=== PATIENT | male | born 1950 | race Caucasian/White ===

== ENCOUNTER → 2021-05-10 | Day surgery (SDC) | payer OTHER ==
--- NOTE | 2021-05-10 11:02 | RAD REPORT ---
EXAM DESCRIPTION: US - Biopsy Lymph Node - 05/10/2021 10:23 am CLINICAL HISTORY: R58.9 COMPARISON: No comparisons FINDINGS: Preoperative diagnosis: Right neck mass. Post operative diagnosis: Same. Conscious Sedation: None Fluoroscopy time: None Contrast used: None Estimated blood loss: Minimal Specimens:5 core samples were obtained with an 18 gauge core biopsy needle The right neck was prepped and draped in the usual sterile fashion. 1% lidocaine was infiltrated into the subcutaneous tissues for local anesthesia. Real time ultrasound scanning of the right neck demon strated the right neck mass. Under ultrasound guidance, using a 18-gauge, 6 cm long, 2 cm throw core biopsy gun, 5 specimens were obtained of this lesion and sent to pathology for evaluation. There were no complications. IMPRESSION: Technically successful ultrasound-guided core biopsy of a right neck mass.
== END ==
LOC: FNA 10:00
PROVIDERS: ATTEND Otolaryngology
DX: C76.0 Malignant neoplasm of head, face and neck (principal)
CPT/HCPCS: 38505; 76942; 88305

== ENCOUNTER 2021-05-20 10:11 | Day surgery (SDC) | payer OTHER ==
[2021-05-20] MEDS ORDERED: Ringers Lactate 1,000 ML IV ONE (10:32)
[2021-05-20 11:24] VITALS: TEMP 97.3
[2021-05-20] MEDS ORDERED: propofoL 200 MG/20 ML VIAL IV ONE (11:44)
[2021-05-20] MEDS ORDERED: LIDOCAINE 1% MPF 5 ML VIAL ONE (11:44)
[2021-05-20] MEDS ORDERED: EPINEPHRINE/PF 1 MG/ML AMP ONE (11:45)
[2021-05-20] MEDS ORDERED: SUCCINYLCHOLINE 20 MG/ML (10 ML) IV ONE (11:54)
--- NOTE | 2021-05-20 12:53 | ENDO RPT ---
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 pylori MEDICATIONS: Per Anesthesia. TOPICAL ANESTHETIC: none CONSENT: The patient understands the risks and benefits of the procedure and understands that these risks include, but are not limited to: sedation, allergic reaction, infection, perforation and/or bleeding. Alternative means of evaluation and treatment include, among others: physical exam, x-rays, and/or surgical intervention. The patient elects to proceed with this endoscopic procedure. DESCRIPTION OF PROCEDURE: During intra-op preparation period all mechanical medical equipment was checked for proper function. Hand hygiene and appropriate measures for infection prevention was taken. Procedure, possible complications, and alternatives including but not limited to the possibility of bleeding, perforation, tear, infection, sepsis, need for surgery, need for blood transfusion, and anesthesia related complications were explained to the patient. After the risks, benefits and alternatives of the procedure were thoroughly explained, Informed consent was verified, confirmed and timeout was successfully executed by the treatment team. The patient was placed in the left lateral position. The patient was anesthetized with topical anesthesia. Through the anesthetized oropharyngeal area, the scope was passed without any difficulty. The EG-2990i ([id number]) and EC-3890Li ([id number]) endoscope was introduced through the mouth and advanced to the second portion of the duodenum. Retroflexed views revealed no abnormalities. The gastroscope was then slowly withdrawn and removed. Moderate gastritis was found in the body and the antrum of the stomach. A biopsy for H. pylori was taken. A pedunculated polyp was found in the body of the stomach. Polyp was snared, then cauterized with monopolar cautery. Polyp was retrieved and sent to pathology. ADVERSE EVENTS: There were no complications. IMPRESSIONS: 1. Moderate gastritis was found in the body and the antrum of the stomach 2. A pedunculated polyp was found in the body of the stomach 3. Normal esophagus, no masses noted RECOMMENDATIONS: 1. acid suppression therapy 2. anti-reflux regimen 3. await biopsy results 4. avoid NSAIDS 5. follow-up: office 2 week(s) 6. avoid NSAIDS 7. follow-up of helicobacter pylori status, treat if indicated 8. Follow up with oncologist - unknown primary REPEAT EXAM: Deniz Sheppard DR eSigned: Deniz Sheppard DR 05/20/2021 12:52 PM cc: CPT CODES: ICD9 CODES: PATIENT NAME: Iris Hernandez MR#: [id number]
[2021-05-20 13:22] VITALS: BP 120/74; O2SAT 100
--- NOTE | 2021-05-20 13:49 | ENDO RPT ---
[address], [address] COLONOSCOPY PROCEDURE REPORT EXAM DATE: 05/20/2021 PATIENT NAME: Iris Hernandez MR #: [id number] BIRTHDATE: 1950 ATTENDING: Deniz Sheppard DR STATUS: outpatient PRIMARY TEACHER: INDICATIONS: The patient is a 71 yr old Male here for a colonoscopy due to colon cancer screening PROCEDURE PERFORMED: Colonoscopy with biopsy MEDICATIONS: Per Anesthesia. ESTIMATED BLOOD LOSS: None CONSENT: The patient understands the risks and benefits of the procedure and understands that these risks include, but are not limited to: sedation, allergic reaction, infection, perforation and/or bleeding. Alternative means of evaluation and treatment include, among others: physical exam, x-rays, and/or surgical intervention. The patient elects to proceed with this endoscopic procedure. DESCRIPTION OF PROCEDURE: During intra-op preparation period all mechanical medical equipment was checked for proper function. Hand hygiene and appropriate measures for infection prevention was taken. Procedure, possible complications, alternatives including, but not limited to possibility of bleeding, perforation, tear, infection, sepsis, need for surgery, need for blood transfusion, were explained to the patient. After the risks, benefits and alternatives of the procedure were thoroughly explained, Informed consent was verified, confirmed and timeout was successfully executed by the treatment team. The patient was placed in the left lateral position. A digital rectal exam was performed and revealed internal hemorrhoids. After appropriate level of anesthesia, the scope was passed. The endoscope was introduced through the anus and advanced to the cecum, which was identified by both the appendix and ileocecal valve. The quality of the prep was poor. The instrument was then slowly withdrawn as the colon was fully examined. Scope withdrawal time was 15 minutes. COLON FINDINGS: Mild diverticulosis was noted in the sigmoid colon. No bleeding was noted from the diverticulosis. A small patch of abnormal mucosa was found in the descending colon. The mucosa was edematous, erythematous and congested. A biopsy of the area was performed using cold forceps. Moderate sized internal hemorrhoids were found. A small patch of abnormal mucosa was found in rectum seen upon the retroflexed view. The mucosa was erythematous and friable. A biopsy of the lesion was performed using cold forceps. Retroflexed views revealed no abnormalities. The scope was then completely withdrawn from the patient and the procedure terminated. ADVERSE EVENTS: There were no complications. IMPRESSIONS: 1. Mild diverticulosis was noted in the sigmoid colon 2. Small abnormal mucosa was found in the descending colon; The mucosa was edematous, erythematous and congested; biopsy of the area was performed using cold forceps 3. Moderate sized internal hemorrhoids 4. Small abnormal mucosa was found in rectum seen upon the retroflexed view; The mucosa was erythematous and friable; biopsy of the lesion was performed using cold forceps RECOMMENDATIONS: 1. await biopsy results 2. avoid NSAIDS for 2 weeks 3. follow-up: office 2 week(s) 4. Monitor for any evidence of rectal bleeding. 5. hemorrhoidal hygiene 6. yearly hemoquant 7. increase dietary water 8. low fiber / diverticular diet RECALL: for Colonoscopy, pending biopsy results. Deniz Sheppard DR eSigned: Deniz Sheppard DR 05/20/2021 1:49 PM cc: CPT CODES: ICD9 CODES: PATIENT NAME: Iris Hernandez MR#: [id number]
== END 2021-05-20 13:55 | disposition home or self-care (01) ==
LOC: OR 10:11
PROVIDERS: ATTEND Surgery
PROC: 0DB68ZX Excision of Stomach, Via Natural or Artificial Opening Endoscopic, Diagnostic (ICD-10-PCS; 2021-05-20)
PROC: 0DB78ZX Excision of Stomach, Pylorus, Via Natural or Artificial Opening Endoscopic, Diagnostic (ICD-10-PCS; 2021-05-20)
PROC: 0DB78ZX Excision of Stomach, Pylorus, Via Natural or Artificial Opening Endoscopic, Diagnostic (ICD-10-PCS; 2021-05-20)
PROC: 0DBM8ZX Excision of Descending Colon, Via Natural or Artificial Opening Endoscopic, Diagnostic (ICD-10-PCS; principal; 2021-05-20 12:00)
PROC: 0DBP8ZX Excision of Rectum, Via Natural or Artificial Opening Endoscopic, Diagnostic (ICD-10-PCS; 2021-05-20 12:00)
DX: C96.9 Malignant neoplasm of lymphoid, hematopoietic and related tissue, unspecified (principal); C76.0 Malignant neoplasm of head, face and neck; K29.50 Unspecified chronic gastritis without bleeding; K64.8 Other hemorrhoids; K57.30 Diverticulosis of large intestine without perforation or abscess without bleeding; Z20.822 Contact with and (suspected) exposure to COVID-19; Z12.11 Encounter for screening for malignant neoplasm of colon
CPT/HCPCS: 88312; 88305; 45380; 43239; 43251; U0003; J2704; J7120; J0171; J0330

== ENCOUNTER 2022-04-04 10:26 | Emergency (ER) | payer OTHER ==
[2022-04-04 11:07] LABS: Urine Blood Trace-intact (Negative); Urine Glucose Negative (Negative); Urine Protein 1+ (Negative); Urine Specific Gravity >=1.030 (1.005-1.030); Urine pH 5.5 (5.0-7.0)
[2022-04-04 12:04] LABS: Transitional Epithelial <5 /HPF (None Seen); Urine Bacteria 20-50 /HPF (<20); Urine Mucus Slight /HPF (None Seen); Urine RBC 21-50 /HPF (None Seen)
[2022-04-04 12:36] LABS: Potassium 4.5 mmol/L (3.5-5.1)
[2022-04-04 12:37] LABS: Absolute Lymphocytes (CBC) 0.6 K/uL (0.7-4.9); Lymphocytes % 13.1 % (15.3-44.8); MCV 96.5 fL (80-100); MPV 7.5 fL (7.6-11.3); RBC Red Blood Cell Count 4.25 M/uL (4.33-5.43)
--- NOTE | 2022-04-04 12:49 | ER ---
Nurse's Notes [facility] Name: Iris Hernandez Age: 72 yrs Sex: Male : 1950 Arrival Date: 04/04/2022 Time: 10:28 Bed Treatment Private MD: Diagnosis: UTI/ Urinary tract infection, site not specified;Dysuria;Lower abdominal pain, unspecified Presentation: 04/04 11:07 Chief complaint: Patient states: he has been having difficulty urinating along with ap3 blood present in his urine since Monday04/02/2022. Coronavirus screen: At this time, the client does not indicate any symptoms associated with coronavirus-19. Ebola Screen: No symptoms or risks identified at this time. Initial Sepsis Screen: Does the patient meet any 2 criteria? No. Patient's initial sepsis screen is negative. Does the patient have a suspected source of infection? Yes: Dysuria/Frequency/Urgency/UTI. Risk Assessment: Do you want to hurt yourself or someone else? Patient reports no desire to harm self or others. Onset of symptoms was April 02, 2022. 11:07 Method Of Arrival: Ambulatory ap3 11:07 Acuity: MARISOL 3 ap3 Triage Assessment: 11:09 General: Appears in no apparent distress. Behavior is calm, cooperative. Pain: ap3 Complains of pain in with urination. Neuro: Level of Consciousness is awake, alert, obeys commands, Oriented to person, place, time, situation. Cardiovascular: Patient's skin is warm and dry. Respiratory: Airway is patent Respiratory effort is even, unlabored. : Reports pain with urination. Historical: - Allergies: 11:08 No Known Allergies; ap3 - Home Meds: 11:08 Simvastatin Oral [Active]; omeprazole Oral [Active]; Lorazepam Oral for anxiety ap3 [Active]; - PMHx: 11:08 Hypercholesterolemia; cancer; ap3 - Immunization history:: Client reports receiving the 2nd dose of the Covid vaccine, Flu vaccine is up to date. - Social history:: Smoking status: Patient denies any tobacco usage or history of. Screenin:10 Abuse screen: Denies threats or abuse. Nutritional screening: No deficits noted. ap3 Tuberculosis screening: No symptoms or risk factors identified. 12:29 Fall Risk Total Duque Fall Scale indicates No Risk (0-24 pts). em6 Assessment: 12:28 General: Appears in no apparent distress. Behavior is cooperative. Pain: Complains of em6 pain in abdomen and pelvis Pain does not radiate. Pain currently is 7 out of 10 on a pain scale. Neuro: Level of Consciousness is awake, alert, obeys commands, Oriented to person, place, time, situation. Cardiovascular: Patient's skin is warm and dry. Respiratory: Airway is patent Respiratory effort is even, unlabored. GI: Abdomen is non-distended, Abd is soft and non tender X 4 quads. : Reports burning with urination, urinary frequency. EENT: No signs and/or symptoms were reported regarding the EENT system. Derm: No signs and/or symptoms reported regarding the dermatologic system. Musculoskeletal: Circulation, motion, and sensation intact. Vital Signs: 11:07 BP 143 / 78; Pulse 98; Resp 17; Temp 98.8(O); Pulse Ox 97% ; Weight 83.91 kg; Height 5 ap3 ft. 10 in. (177.80 cm); 12:29 BP 114 / 72; Pulse 86; Resp 18; Pulse Ox 97% on R/A; em6 11:07 Body Mass Index 26.54 (83.91 kg, 177.80 cm) ap3 ED Course: 10:28 Patient arrived in ED. mr 10:37 Praveen Negrete DO is Attending Physician. ms3 11:08 Triage completed. ap3 11:10 Arm band placed on right wrist. ap3 11:15 Urine Culture Sent. ap3 11:15 Urine Microscopic Only Sent. ap3 12:15 BMP Sent. iw 12:15 CBC with Diff Sent. iw 12:22 Rosana Cesar, RN is Primary Nurse. em6 12:29 Bed in low position. Call light in reach. Side rails up X 1. Pulse ox on. NIBP on. Warm em6 blanket given. 12:47 Virgil Garland DO is Referral Physician. ms3 13:09 No provider procedures requiring assistance completed. IV discontinued, intact, em6 bleeding controlled, No redness/swelling at site. Pressure dressing applied. Administered Medications: 13:08 Not Given (Physician Discretion): cefPODOXime 200 mg PO once em6 Medication: 13:09 VIS not applicable for this client. em6 Outcome: 12:48 Discharge ordered by . ms3 13:09 Discharged to home ambulatory, with family. em6 13:09 Condition: stable 13:09 Discharge instructions given to patient, significant other, Instructed on discharge instructions, follow up and referral plans. medication usage, Demonstrated understanding of instructions, follow-up care, medications, Prescriptions given X 1. 13:10 Patient left the ED. em6 Addendum: 04/06/2022 09:05 Addendum: Culture Results: Positive urine culture. No further action required. Bacteria s s sensitive to prescribed antibiotic. Signatures: Chelsie Blackburn mr Netta Snyder, RN RN iw Rina Bennett RN RN ss Erin Conteh RN RN ap3 Praveen Negrete DO DO ms3 Rosana Cesar, RN RN em6
--- NOTE | 2022-04-04 12:49 | EDPHYS ---
Physician Documentation [facility] Name: Iris Hernandez Age: 72 yrs Sex: Male : 1950 Arrival Date: 04/04/2022 Time: 10:28 Bed Treatment Private MD: ED Physician Praveen Negrete HPI: 04/04 11:56 This 72 yrs old Male presents to ER via Ambulatory with complaints of Urinary Problem. ms3 11:56 The patient presents with urinary symptoms, dysuria, urinary frequency, hesitancy to ms3 initiate urine stream. Onset: The symptoms/episode began/occurred 2 day(s) ago. Modifying factors: The symptoms are alleviated by nothing, the symptoms are aggravated by nothing. Associated signs and symptoms: The patient has no apparent associated signs or symptoms. Severity of symptoms: At their worst the symptoms were moderate, in the emergency department the symptoms are unchanged. Historical: - Allergies: 11:08 No Known Allergies; ap3 - Home Meds: 11:08 Simvastatin Oral [Active]; omeprazole Oral [Active]; Lorazepam Oral for anxiety ap3 [Active]; - PMHx: 11:08 Hypercholesterolemia; cancer; ap3 - Immunization history:: Client reports receiving the 2nd dose of the Covid vaccine, Flu vaccine is up to date. - Social history:: Smoking status: Patient denies any tobacco usage or history of. ROS: 11:56 Constitutional: Negative for fever, and chills. Neck: Negative for injury, pain, and ms3 swelling, Cardiovascular: Negative for chest pain, and palpitations. Respiratory: Negative for shortness of breath, cough, wheezing, and pleuritic chest pain, Abdomen/GI: Negative for abdominal pain, nausea, vomiting, diarrhea, and constipation. 11:56 : Positive for urinary symptoms, urinary frequency, small amounts, burning with urination. 11:56 All other systems are negative. Exam: 11:56 Constitutional: This is a well developed, well nourished patient who is awake, alert, ms3 and in no acute distress. Neck: Trachea midline, no cervical lymphadenopathy. Supple, full range of motion without nuchal rigidity, or vertebral point tenderness. No Meningismus. Chest/axilla: Normal chest wall appearance and motion. Nontender with no deformity. Cardiovascular: Regular rate and rhythm with a normal S1 and S2. No gallops, murmurs, or rubs. Normal PMI, no JVD. No pulse deficits. Respiratory: Lungs have equal breath sounds bilaterally, clear to auscultation and percussion. No rales, rhonchi or wheezes noted. No increased work of breathing, no retractions or nasal flaring. Abdomen/GI: Soft, non-tender, with normal bowel sounds. No distension or tympany. No guarding or rebound. No evidence of tenderness throughout. Skin: Warm, dry with normal turgor. Normal color with no rashes, no lesions, and no evidence of cellulitis. MS/ Extremity: Pulses equal, no cyanosis. Neurovascular intact. Full, normal range of motion. 11:56 Back: CVA tenderness, is absent. ms3 Vital Signs: 11:07 BP 143 / 78; Pulse 98; Resp 17; Temp 98.8(O); Pulse Ox 97% ; Weight 83.91 kg; Height 5 ap3 ft. 10 in. (177.80 cm); 12:29 BP 114 / 72; Pulse 86; Resp 18; Pulse Ox 97% on R/A; em6 11:07 Body Mass Index 26.54 (83.91 kg, 177.80 cm) ap3 MDM: 11:33 Patient medically screened. ms3 11:57 Differential diagnosis: nonspecific abdominal pain, UTI, pyelonephritis. ms3 04/04 11:08 Order name: Urine Dipstick-Ancillary; Complete Time: 11:53 EDMS 12 11:11 Order name: Urine Culture ap3 04/04 11:11 Order name: Urine Microscopic Only; Complete Time: 12:46 ap3 04/04 11:54 Order name: CBC with Diff; Complete Time: 12:46 ms3 04/04 11:54 Order name: BMP; Complete Time: 12:46 ms3 Administered Medications: 13:08 Not Given (Physician Discretion): cefPODOXime 200 mg PO once em6 Disposition Summary: 04/04/22 12:48 Discharge Ordered Location: Home ms3 Condition: Stable ms3 Diagnosis - UTI/ Urinary tract infection, site not specified ms3 - Dysuria ms3 - Lower abdominal pain, unspecified ms3 Followup: ms3 - With: Virgil Garland, DO - When: 2 - 3 days - Reason: Re-evaluation by your physician Discharge Instructions: - Discharge Summary Sheet ms3 - Dysuria ms3 - Urinary Tract Infection, Adult ms3 Forms: - Medication Reconciliation Form ms3 - Thank You Letter ms3 - Antibiotic Education ms3 - Prescription Opioid Use ms3 Prescriptions: - cefpodoxime 200 mg Oral Tablet - take 1 tablet by ORAL route every 12 hours with food; 14 tablet; Refills: 0, ms3 Product Selection Permitted Signatures: Dispatcher [employer] Erin Garcia RN RN ap3 Praveen Negrete DO DO ms3 Rsoana Cesar RN em6
[2022-04-04 13:20] VITALS: TEMP 98.8; O2SAT 97
[2022-04-04 13:21] VITALS: BP 114/72
== END 2022-04-04 13:10 | disposition home or self-care (01) ==
LOC: ER 10:26
DX: N39.0 Urinary tract infection, site not specified (principal); R10.30 Lower abdominal pain, unspecified
CPT/HCPCS: 36415; 80048; 81003; 81015; 85025; 87077; 87086; 87088; 87186; 99283

== ENCOUNTER 2024-01-24 09:11 | Emergency (ER) | payer OTHER ==
[2024-01-24] MEDS ORDERED: ONDANSETRON 4 MG/2 ML VIAL ONE (09:46)
[2024-01-24] MEDS ORDERED: HYDROMORPHONE HCL 1 MG/ML INJ ONE (09:47)
[2024-01-24] MEDS ORDERED: FAMOTIDINE 20 MG/2 ML VIAL IV ONE (09:47)
[2024-01-24] MEDS ORDERED: NA CHLORIDE 0.9% 1,000 ML ONE (09:47)
[2024-01-24 09:52] LABS: Absolute Eosinophils 0.1 K/uL (0-0.5); Absolute Lymphocytes (CBC) 0.6 K/uL (0.7-4.9); Absolute Monocytes 0.8 K/uL (0.1-1.3); Absolute Neutrophil 8.9 K/uL (1.8-8.0); Basophils % 0.4 % (0-1.3); Hematocrit 36.9 % (39.6-49.0); Hemoglobin 12.7 g/dL (13.6-17.9); Lymphocytes % 5.3 % (15.3-44.8); MCH 33.6 pg (27.0-35.0); MCHC 34.3 g/dL (32.0-36.0); MCV 97.8 fL (80-100); MPV 8.2 fL (7.6-11.3); Monocytes % 7.9 % (3.3-12.3); Neutrophils % 85.4 % (41.7-73.7); Platelets 266 thou/uL (152-406); RBC Red Blood Cell Count 3.78 M/uL (4.33-5.43); Red Cell Distribution Width 15.4 % (12.1-15.2)
[2024-01-24 10:23] LABS: Albumin 3.2 g/dL (3.4-5.0); Albumin/Globulin Ratio 0.8 (1.1-1.8); Anion Gap 8.8 mEq/L (5.0-15.0); Bilirubin Direct 2.5 mg/dL (0-0.2); Bilirubin Indirect, Calculated 1.2 mg/dL (0.2-0.8); Bilirubin Total 3.7 mg/dL (0.2-1.0); Globulin 3.9 g/dL (2.3-3.5); Protein, Total 7.1 g/dL (6.4-8.2)
[2024-01-24 10:25] LABS: PT Prothrombin Time 12.5 SECONDS (9.4-12.5); Protime INR 1.12
[2024-01-24 10:26] LABS: Magnesium 2.1 mg/dL (1.6-2.4); Potassium 3.8 mEq/L (3.5-5.1)
[2024-01-24 11:01] LABS: Blood Morphology Comment NOT SEEN (NOT SEEN); Differential Total Cells Count 100; Eosinophils 1 % (0-3); Lymphocytes 3 % (15-42); Metamyelocytes 1 % (0-0); Monocytes 10 % (0-10); Myelocytes 1 % (0-0); Platelet Estimate ADEQ; Segmented Neutrophils 84 % (40-80)
--- NOTE | 2024-01-24 11:03 | RAD REPORT ---
Procedure: Chest Single View History: Abdominal pain Comparison: 2010 Findings: Right hemidiaphragm is elevated with area of subsegmental atelectasis within the right lung base Left lung appears clear Heart is normal size
--- NOTE | 2024-01-24 11:16 | RAD REPORT ---
EXAMINATION: CT ABDOMEN AND PELVIS WITH CONTRAST CLINICAL INDICATION: Abdominal pain TECHNIQUE: CT abdomen and pelvis was performed, after the administration of 100 cc Isovue-300.. Sagit betty and coronal reconstructions were obtained. One or more of the following dose reduction techniques were used: Automated exposure control, adjustment of the mA and/or kV according to patien t size, and/or iterative reconstruction. Unless otherwise specified, incidental findings do not require dedicated imaging follow-up. [id number]. Oral contrast was not given which limits evaluation of b owel and appendix. 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 A biliary stent has been placed since the prior exam . The distal aspect of the stent enters the duodenum. Extrahepatic bile duct normal caliber. Mild dilatation of the intrahepatic biliary tree has diminished in caliber. Several hepatic cysts are pres ent. Splenic granulomata are present. Adrenals and kidneys demonstrate no significant abnormality. There is no evidence of diverticulitis Normal appendix. Moderate to large amount stool within the colon. 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
--- NOTE | 2024-01-24 12:37 | EDPHYS ---
Physician Documentation [facility] Name: Iris Hernandez Age: 73 yrs Sex: Male : 1950 Arrival Date: 01/24/2024 Time: 09:11 Bed 4 Private MD: ED Physician Raymond Barrios HPI: 01/23 10:43 This 73 yrs old Male presents to ER via Ambulatory with complaints of aisha Abdominal Pain. 10:43 The patient presents with abdominal pain in the upper abdomen. Onset: The aisha symptoms/episode began/occurred 3 day(s) ago. The symptoms do not radiate. Associated signs and symptoms: Pertinent positives: anorexia. Modifying factors: The symptoms are alleviated by nothing, the symptoms are aggravated by nothing. Severity of pain: At its worst the pain was moderate last night, in the emergency department the pain is unchanged. The patient has experienced similar episodes in the past, multiple times. Historical: - Allergies: : No Known Allergies; ll1 - PMHx: : Cancer; Hypercholesterolemia; ll1 - Immunization history:: Adult Immunizations up to date. - Infectious Disease History:: Denies. - Social history:: Smoking status: Patient denies any tobacco usage or history of. - Family history:: not pertinent. ROS: 10:43 Constitutional: Negative for fever, chills, and weight loss, Eyes: Negative for injury, aisha pain, redness, and discharge, ENT: Negative for injury, pain, and discharge, Neck: Negative for injury, pain, and swelling, Cardiovascular: Negative for chest pain, palpitations, and edema, Respiratory: Negative for shortness of breath, cough, wheezing, and pleuritic chest pain, Back: Negative for injury and pain, : Negative for injury, bleeding, discharge, and swelling, MS/Extremity: Negative for injury and deformity, Skin: Negative for injury, rash, and discoloration, Neuro: Negative for headache, weakness, numbness, tingling, and seizure, Psych: Negative for depression, anxiety, suicide ideation, homicidal ideation, and hallucinations, Allergy/Immunology: Negative for hives, rash, and allergies, Endocrine: Negative for neck swelling, polydipsia, polyuria, polyphagia, and marked weight changes, Hematologic/Lymphatic: Negative for swollen nodes, abnormal bleeding, and unusual bruising, 10:43 Abdomen/GI: Positive for abdominal pain, nausea, of the right upper quadrant, Exam: 10:43 Constitutional: This is a well developed, well nourished patient who is awake, alert, aisha and in no acute distress. Head/Face: Normocephalic, atraumatic. Eyes: Pupils equal round and reactive to light, extra-ocular motions intact. Lids and lashes normal. Conjunctiva and sclera are non-icteric and not injected. Cornea within normal limits. Periorbital areas with no swelling, redness, or edema. ENT: Nares patent. No nasal discharge, no septal abnormalities noted. Tympanic membranes are normal and external auditory canals are clear. Oropharynx with no redness, swelling, or masses, exudates, or evidence of obstruction, uvula midline. Mucous membranes moist. Neck: Trachea midline, no thyromegaly or masses palpated, and no cervical lymphadenopathy. Supple, full range of motion without nuchal rigidity, or vertebral point tenderness. No Meningismus. Chest/axilla: Normal chest wall appearance and motion. Nontender with no deformity. No lesions are appreciated. Cardiovascular: Regular rate and rhythm with a normal S1 and S2. No gallops, murmurs, or rubs. Normal PMI, no JVD. No pulse deficits. Respiratory: Lungs have equal breath sounds bilaterally, clear to auscultation and percussion. No rales, rhonchi or wheezes noted. No increased work of breathing, no retractions or nasal flaring. Back: No spinal tenderness. No costovertebral tenderness. Full range of motion. Male : Normal genitalia with no discharge or lesions. Skin: Warm, dry with normal turgor. Normal color with no rashes, no lesions, and no evidence of cellulitis. MS/ Extremity: Pulses equal, no cyanosis. Neurovascular intact. Full, normal range of motion. Neuro: Awake and alert, GCS 15, oriented to person, place, time, and situation. Cranial nerves II-XII grossly intact. Motor strength 5/5 in all extremities. Sensory grossly intact. Cerebellar exam normal. Normal gait. Psych: Awake, alert, with orientation to person, place and time. Behavior, mood, and affect are within normal limits. 10:43 ECG was reviewed by the Attending Physician. 10:43 Abdomen/GI: Inspection: abdomen appears normal, Bowel sounds: normal, Palpation: moderate abdominal tenderness, in the epigastric area and right upper quadrant, Liver: no appreciated palpable abnormalities, Hernia: not appreciated, Vital Signs: 09:28 BP 137 / 91; Pulse 97; Resp 20; Temp 97.8; Pulse Ox 97% on R/A; Weight 85.28 kg; Height ll1 5 ft. 10 in. ; Pain 9/10; 11:20 BP 136 / 84; Pulse 87; Resp 18; Pulse Ox 95% on R/A; ph 12:16 BP 119 / 84; Pulse 77; Resp 16; Pulse Ox 94% ; bp 09:28 Body Mass Index 26.97 (85.28 kg, 177.8 cm) ll1 09:28 Pain Scale: Adult ll1 MDM: 09:27 Patient medically screened. [facility] 12:33 Differential diagnosis: bowel obstruction, cholecystitis, Cholelithiasis, aisha diverticulitis, gastritis, gastroesophageal reflux disease, Hepatitis, Mesenteric ischemia or infarction, non-specific abd pain, pancreatitis, Peptic Ulcer Disease. Data reviewed: vital signs, nurses notes, lab test result(s), EKG. Consideration of Admission/Observation Escalation of care including admission/observation considered. I considered the following discharge prescriptions or medication management in the emergency department Medications were administered in the Emergency Department. See MAR. Independent interpretation of the following test(s) in the Emergency Department EKG: See my EKG interpretation above. Test considered but Not performed: Ultrasound no gb usg. Historians other than the Patient: Spouse/Significant Other: well informed. Care significantly affected by the following chronic conditions: Obesity, Cancer, high chlesterol. 01/23 09:27 Order name: Basic Metabolic Panel; Complete Time: 10:39 [facility] 01/23 09:27 Order name: CBC with Diff; Complete Time: 12:33 [facility] 01/23 09:27 Order name: LFT's; Complete Time: 10:39 [facility] 01/23 09:27 Order name: Magnesium; Complete Time: 10:39 [facility] 01/23 09:27 Order name: NT PRO-BNP; Complete Time: 10:39 [facility] 01/23 09:27 Order name: PT-INR; Complete Time: 10:39 [facility] 01/23 09:27 Order name: Troponin HS; Complete Time: 10:39 [facility] 01/23 09:27 Order name: Lipase; Complete Time: 10:39 [facility] 01/23 11:01 Order name: Manual Differential; Complete Time: 12:33 EDMS 01/23 09:27 Order name: XRAY Chest (1 view); Complete Time: 12:33 [facility] 01/23 09:27 Order name: CT Abd/Pelvis - IV Contrast Only; Complete Time: 12:33 aisha 01/23 09:27 Order name: Cardiac monitoring; Complete Time: 09:53 aisha 01/23 09:27 Order name: EKG - Nurse/Tech; Complete Time: 09:53 [facility] 01/23 09:27 Order name: IV Saline Lock; Complete Time: 09:53 [facility] 01/23 09:27 Order name: Labs collected and sent; Complete Time: 09:53 [facility] 01/23 09:27 Order name: O2 Per Protocol; Complete Time: :53 [facility] 01/23 09:27 Order name: O2 Sat Monitoring; Complete Time: 09:53 [facility] 01/23 09:59 Order name: Labs - recollect needed: blue top; Complete Time: 10:08 ll1 EC:43 Rate is 80 beats/min. Rhythm is regular. QRS [place] is Normal. TN interval is prolonged aisha at 228 msec. QRS interval is normal. QT interval is normal. No Q waves. T waves are Normal. No ST changes noted. Clinical impression: NSR w/ Non-specific ST/T Changes, 1st degree heart block, and No evidence of ischemia. Interpreted by me. Reviewed by me. Administered Medications: 09:42 Not Given (Duplicate Order): fentanyl (pf)25 mcg IVP once aisha 09:42 Not Given (Duplicate Order): fentanyl (pf)25 mcg IVP once aisha 09:53 Drug: NS 0.9% IV 1000 ml IV at 1 bolus Per protocol; 1000 mL bolus Route: IV; Rate: 1 bp bolus; Site: left antecubital; 11:30 Follow up: Response: No adverse reaction; IV Status: Completed infusion; IV Intake: ph 1000ml 09:53 Drug: Ondansetron IVP 4 mg IVP once; over 2 minutes Route: IVP; Site: left antecubital; bp 13:04 Follow up: Response: No adverse reaction rs5 09:53 Drug: HYDROmorphone IVP 1 mg IVP once Route: IVP; Site: left antecubital; bp 13:04 Follow up: Response: No adverse reaction rs5 09:53 Drug: Famotidine IVP 20 mg IVP once; dilute with 10 mL 0.9% NaCl; give over 2 minutes bp Route: IVP; Site: left antecubital; 13:04 Follow up: Response: No adverse reaction rs5 12:45 Drug: Amoxicillin-Clavulanate PO 875 mg PO once Route: PO; rs5 13:03 Follow up: Response: No adverse reaction rs5 Disposition Summary: 01/24/24 12:36 Discharge Ordered Notes: Location: Home [facility] Problem: new aisha Symptoms: have improved aisha Condition: Stable aisha Diagnosis - Epigastric abdominal tenderness aisha - Malignant neoplasm of head of pancreas aisha Followup: aisha - With: Private Physician - When: 2 - 3 days - Reason: Recheck today's complaints, Continuance of care, Re-evaluation by your physician Discharge Instructions: - Discharge Summary Sheet aisha - Abdominal Pain, Adult aisha - Abdominal Pain, Adult, [id number] [facility] - Pancreatic Cancer [facility] Forms: - Medication Reconciliation Form [facility] - Antibiotic Education [facility] - Prescription Opioid Use [facility] - Patient Portal Instructions [facility] - Leadership Thank You Letter [facility] Prescriptions: - acetaminophen-codeine 300-30 mg Oral tablet - take 2 tablet ORAL route every 6 hours as needed for pain; 30 tablet; Refills: [facility] 0, Product Selection Permitted - ondansetron 4 mg Oral Tablet,disintegrating - take 1 tablet ORAL route every 6-8 hours for 7 days; 30 tablet; Refills: 0, [facility] Product Selection Permitted - Augmentin 875-125 mg Oral tablet - take 1 tablet ORAL route every 12 hours for 7 days; 14 tablet; Refills: 0, [facility] Product Selection Permitted - Pepcid 20 mg Oral tablet - take 1 tablet ORAL route every 12 hours for 21 days; 42 tablet; Refills: 0, [facility] Product Selection Permitted Signatures: Dispatcher [employer] EDMS Raymond Barrios MD MD cha Hall, Patricia RN Santiago Sierra ph, RN RN bp Klarissa Cummings RN RN ll1 Florian Nathan, RN RN rs5 Corrections: (The following items were deleted from the chart) 09:27 09:27 BASIC METABOLIC PANEL+C.LAB.BRZ ordered. EDMS EDMS 09:27 09:27 CBC+H.LAB.BRZ ordered. EDMS EDMS 09:27 09:27 HEPATIC FUNCTION+C.LAB.BRZ ordered. EDMS EDMS 09: 09:27 MAGNESIUM+C.LAB.BRZ ordered. EDMS EDMS 09: 09:27 PROBNP+C.LAB.BRZ ordered. EDMS EDMS 09: 09:27 PROTIME (+INR)+COAG.LAB.BRZ ordered. EDMS EDMS 09: 09:27 Troponin High Sensitivity+C.LAB.BRZ ordered. EDMS EDMS : 09:27 LIPASE+C.LAB.BRZ ordered. EDMS EDMS : 09:27 Urinalysis+U.LAB.BRZ ordered. EDMS EDMS 09: 09:27 Chest Single View+RAD.RAD.BRZ ordered. EDMS EDMS : 09:27 Abdomen Pelvis W Con+CT.RAD.BRZ ordered. EDMS EDMS 11:02 09:59 CBC Smear Scan ordered. EDMS EDMS
--- NOTE | 2024-01-24 12:37 | ER ---
Nurse's Notes [facility] Name: Iris Hernandez Age: 73 yrs Sex: Male : 1950 Arrival Date: 01/24/2024 Time: 09:11 Bed 4 Private MD: Diagnosis: Epigastric abdominal tenderness;Malignant neoplasm of head of pancreas Presentation: 01/23 09:28 Chief complaint: Patient states: Abdominal pain since having tube placed in pancreatic ll1 area at [facility] a few days ago. Throat pain also after a "long endoscopy". Fever 99.5 at home. Coronavirus screen: Client denies travel out of the [place] in the last 14 days. At this time, the client does not indicate any symptoms associated with coronavirus-19. Ebola Screen: Patient denies travel to an Ebola-affected area in the 21 days before illness onset. Initial Sepsis Screen: Does the patient meet any 2 criteria? No. Patient's initial sepsis screen is negative. Does the patient have a suspected source of infection? No. Patient's initial sepsis screen is negative. Risk Assessment: Do you want to hurt yourself or someone else? Patient reports no desire to harm self or others. Onset of symptoms was January 22, 2024. 09:28 Method Of Arrival: Ambulatory ll1 09:28 Acuity: MARISOL 3 ll1 Triage Assessment: :30 General: Appears in no apparent distress. Behavior is cooperative, appropriate for age, bp anxious. Pain: Complains of pain in abdomen. EENT: No deficits noted. Neuro: No deficits noted. Cardiovascular: No deficits noted. Respiratory: No deficits noted. GI: No signs and/or symptoms were reported involving the gastrointestinal system. : No signs and/or symptoms were reported regarding the genitourinary system. Derm: No deficits noted. Musculoskeletal: No deficits noted. Historical: - Allergies: : No Known Allergies; ll1 - PMHx: : Cancer; Hypercholesterolemia; ll1 - Immunization history:: Adult Immunizations up to date. - Infectious Disease History:: Denies. - Social history:: Smoking status: Patient denies any tobacco usage or history of. - Family history:: not pertinent. Screenin:[address] [facility] ED Fall Risk Assessment (Adult) History of falling in the last 3 months, ph including since admission No falls in past 3 months (0 pts) Confusion or Disorientation No (0 pts) Intoxicated or Sedated No (0 pts) Impaired Gait No (0 pts) Mobility Assist Device Used No (0 pt) Altered Elimination No (0 pt) Score/Fall Risk Level 0 - 2 = Low Risk Oriented to surroundings, Maintained a safe environment, Hourly rounding (assess needs \\T\\ fall precautionary measures) done. Abuse screen: Denies threats or abuse. Denies injuries from another. Nutritional screening: No deficits noted. Tuberculosis screening: No symptoms or risk factors identified. Assessment: 10:00 General: Appears in no apparent distress. Behavior is calm, cooperative. Pain: ph Complains of pain in epigastric area and right upper quadrant. Pain: Complains of pain in neck. Neuro: Level of Consciousness is awake, alert, obeys commands, Oriented to person, place, time, situation. Cardiovascular: Capillary refill < 3 seconds in bilateral fingers Patient's skin is warm and dry. Respiratory: Airway is patent Respiratory effort is even, unlabored. GI: Abdomen is non-distended, Bowel sounds present X 4 quads. Abd is soft X 4 quads Reports upper abdominal pain, nausea. Derm: Skin is jaundiced. Musculoskeletal: Circulation, motion, and sensation intact. Range of motion: intact in all extremities. 12:16 Reassessment: Patient appears in no apparent distress at this time. Patient is alert, bp oriented x 3, equal unlabored respirations, skin warm/dry/pink. Vital Signs: 09:28 BP 137 / 91; Pulse 97; Resp 20; Temp 97.8; Pulse Ox 97% on R/A; Weight 85.28 kg; Height ll1 5 ft. 10 in. ; Pain 9/10; 11:20 BP 136 / 84; Pulse 87; Resp 18; Pulse Ox 95% on R/A; ph 12:16 BP 119 / 84; Pulse 77; Resp 16; Pulse Ox 94% ; bp 09:28 Body Mass Index 26.97 (85.28 kg, 177.8 cm) ll1 09:28 Pain Scale: Adult ll1 ED Course: 09:21 Patient arrived in ED. ra3 09:22 Raymond Barrios MD is Attending Physician. aisha 09:22 Arm band placed on Patient placed in an exam room, on a stretcher. ll1 09:24 Sheets, Dary, RN is Primary Nurse. ph 09:31 Triage completed. ll1 09:45 Initial lab(s) drawn, by me, sent to lab. EKG done, by ED staff, reviewed by Raymond Barrios MD. Inserted saline lock: 20 gauge in left antecubital area, using aseptic technique. Blood collected. Flushed with 10 mL NS. 10:30 XRAY Chest (1 view) In Process Unspecified. EDMS 10:41 CT Abd/Pelvis - IV Contrast Only In Process Unspecified. EDMS 11:22 Patient has correct armband on for positive identification. Bed in low position. Call ph light in reach. Side rails up X 1. research programmer on. Pulse ox on. NIBP on. 12:[address] Higgins answering service at [phone]. bd 13:04 No provider procedures requiring assistance completed. IV discontinued, intact, rs5 bleeding controlled, No redness/swelling at site. Pressure dressing applied. Administered Medications: 09:42 Not Given (Duplicate Order): fentanyl (pf)25 mcg IVP once aisha 09:42 Not Given (Duplicate Order): fentanyl (pf)25 mcg IVP once aisha 09:53 Drug: NS 0.9% IV 1000 ml IV at 1 bolus Per protocol; 1000 mL bolus Route: IV; Rate: 1 bp bolus; Site: left antecubital; 11:30 Follow up: Response: No adverse reaction; IV Status: Completed infusion; IV Intake: ph 1000ml 09:53 Drug: Ondansetron IVP 4 mg IVP once; over 2 minutes Route: IVP; Site: left antecubital; bp 13:04 Follow up: Response: No adverse reaction rs5 09:53 Drug: HYDROmorphone IVP 1 mg IVP once Route: IVP; Site: left antecubital; bp 13:04 Follow up: Response: No adverse reaction rs5 09:53 Drug: Famotidine IVP 20 mg IVP once; dilute with 10 mL 0.9% NaCl; give over 2 minutes bp Route: IVP; Site: left antecubital; 13:04 Follow up: Response: No adverse reaction rs5 12:45 Drug: Amoxicillin-Clavulanate PO 875 mg PO once Route: PO; rs5 13:03 Follow up: Response: No adverse reaction rs5 Medication: 11:21 VIS not applicable for this client. ph Intake: 11:30 IV: 1000ml; Total: 1000ml. ph Outcome: 12:36 Discharge ordered by . aisha 13:04 Discharged to home ambulatory, with family, rs5 13:04 Condition: stable 13:04 Discharge instructions given to patient, family, Instructed on discharge instructions, follow up and referral plans. medication usage, Demonstrated understanding of instructions, follow-up care, medications, Prescriptions given X 2, 13:05 Patient left the ED. rs5 Signatures: Dispatcher [employer] EDMS Juanita Ngo Corey, MD MD cha Hall, Patricia, RN RN Santiago Garcia RN RN Klarissa Colon RN RN 1 Florian Nathan RN RN rs5 Jessy Matson 3
[2024-01-24] MEDS ORDERED: AMOX/K CLAV 875 MG TAB ONE (12:46)
[2024-01-25 02:31] VITALS: TEMP 97.8
[2024-01-25 02:34] VITALS: BP 119/84; O2SAT 94
--- NOTE | 2024-01-26 16:42 | EKG ---
Test Date: 2024-01-24 Test Time: 10:09:17 [facility]: PH MEASUREMENT RESULTS: Intervals: Rate: 93 MA: 174 QRSD: 148 QT: 390 QTc: 484 [place]: P: 29 MA: 174 QRS: -22 T: 17 INTERPRETIVE STATEMENTS: Normal sinus rhythm Right bundle branch block Abnormal ECG Compared to ECG 08/20/2010 09:18:50 Right bundle-branch block now present Electronically Signed On 01-26-24 16:34:31 CDT by Vamsi James
== END 2024-01-24 13:05 | disposition home or self-care (01) ==
LOC: ER 09:11
DX: R10.13 Epigastric pain (principal); C25.9 Malignant neoplasm of pancreas, unspecified; E78.00 Pure hypercholesterolemia, unspecified
CPT/HCPCS: 96361; 93005; 85025; 80048; 36415; 83735; 85610; 80076; 84484; 83690; 83880; 74177; 71045; 96375; 96374; 99285; Q9967; J1170; J2405; J7030

== ENCOUNTER 2024-02-28 07:58 | Day surgery (SDC) | payer OTHER ==
[2024-02-28] MEDS ORDERED: NS 0.9% VIAL 20 ML ONE ×2 (08:14→09:30)
[2024-02-28] MEDS ORDERED: propofoL 200 MG/20 ML VIAL IV ONE (08:21)
[2024-02-28] MEDS ORDERED: ONDANSETRON 4 MG/2 ML VIAL ONE (08:21)
[2024-02-28] MEDS ORDERED: LIDOCAINE 2% MPF 5 ML VIAL ONE (08:21)
[2024-02-28] MEDS ORDERED: FENTANYL CITR 100 MCG/2 ML ONE (08:21)
[2024-02-28] MEDS: Ringers Lactate 1,000 ML IV ONE (08:25)
[2024-02-28] MEDS: CEFAZOLIN SODIUM 2 GM/VIAL ONE (09:08)
[2024-02-28] MEDS: LIDOCAINE 1% 20 ML MDV ONE (09:45)
[2024-02-28] MEDS: HEPARIN 5000 UNIT/ML 1 ML VIAL ONE (09:53)
--- NOTE | 2024-02-28 10:31 | P.OP ---
Date of Service: 02/28/24 Preop diagnosis: Metastatic pancreatic cancer Postop diagnosis: Same Procedure performed: Placement of left internal jugular Port-A-Cath device, Doppler and fluoroscopy Surgeon: Jamal Nicholson MD Trim Machine Operator: Nadeen OLEA Estimated blood loss: Minimal Specimen: None Findings: Tip of the catheter was placed in the SVC innominate vein junction due to difficulties in getting it into the SVC towards the right atrium Anesthesia: General Complications: None Drains: None Fluids and blood products: Nonapplicable Disposition: Recovery Operative note: Patient brought to the OR and placed in supine position. General anesthesia began. Patient prepped and draped in usual sterile fashion. Lidocaine 1% infiltrated locally. Doppler device used to identify the left internal jugular vein. 18-gauge needle used to access the left internal jugular vein. Guidewire passed and position confirmed with fluoroscopy. The guidewire was very difficult to get into the SVC towards the right atrium. Because of the previous radiation treatment on the right side of the neck, we placed the tip of the catheter at the innominate vein/SVC junction. 3 cm counterincision made on the left anterior chest. Pocket created. Tunneling device used to tunnel the catheter between the 2 wounds. Tip of the catheter placed at the innominate vein and SVC junction. Catheter attached to the Port-A-Cath device. Port-A-Cath device attached to subcutaneous tissue with 3-0 Vicryl. Port-A-Cath device flushed with heparin and packed with heparin with good blood flow. 0 chromic used to approximate subcu tissue and close skin. Sterile dressing applied. Patient awakened and taken to recovery room in good general condition. Chest x-ray has been ordered. CC: Dr. Velazquez's office
--- NOTE | 2024-02-28 11:02 | RAD REPORT ---
EXAMINATION: ONE VIEW CHEST XR CLINICAL INDICATION: Male, 73 years old.Status post placement of Port-A-Cath device TECHNIQUE: 1 View, AP supine, X-ray of the chest was performed. [id number]. COMPARISON: 01/24/2024 FINDINGS: Lungs and pleura: Low lung volumes with likely right basilar atelectasis. Right hemidiaphragm remains similarly elevated. No effusion. Heart and mediastinum: Normal heart size. Unremarkable mediastinal contours. Osseous structures: Left IJ approach Port-A-Cath with tip in the region of the proximal SVC/distal le ft brachiocephalic vein. ACDF in the cervical spine. Tubes/lines: None Other: None. IMPRESSION: No pneumothorax following left-sided Port-A-Cath placement. Tip as noted above.
--- NOTE | 2024-02-28 11:18 | RAD REPORT ---
EXAM: Fluoroscopy use, Fluoroscopy <1 Hour HISTORY: [facility] MA[facility] PORT A CATH COMPARISON: None FINDINGS: A total of 2 images were sent to PACS, during a fluoroscopically guided Port-A-Cath placeme nt. No radiologist was involved in protocoling or performance of the study, and no radiologist was present for the duration of the procedure. No interpretation of the saved images will be provided. Total fluoroscopy time: 5.4 minutes. IMPRESSION: Documentation of fluoroscopy use as above.
[2024-02-28] MEDS ORDERED: HYDROCODONE/APAP 7.5/325 MG TAB ONE (11:42)
[2024-02-28] MEDS: HYDROCODONE/APAP 7.5/325 MG TAB PO PRN (11:55)
[2024-02-28 13:44] VITALS: O2SAT 95
[2024-02-28 13:45] VITALS: BP 115/70; TEMP 97
== END 2024-02-28 13:12 | disposition home or self-care (01) ==
LOC: OR 07:58
PROVIDERS: ATTEND Surgery
PROC: 0JH60WZ Insertion of Totally Implantable Vascular Access Device into Chest Subcutaneous Tissue and Fascia, Open Approach (ICD-10-PCS; principal; 2024-02-28 08:45)
DX: C78.89 Secondary malignant neoplasm of other digestive organs (principal)
CPT/HCPCS: 71045; 36561; J1644 ×2; A4216 ×2; J2704; J2003 ×2; J3010; J2405; J7120; C1788; 76000

== ENCOUNTER 2024-04-20 11:29 | Emergency (ER) | payer OTHER ==
[2024-04-20] MEDS ORDERED: NA CHLORIDE 0.9% 1,000 ML ONE (12:33)
[2024-04-20] MEDS ORDERED: ALBUTEROL 2.5 MG/3 ML NEB SOL ONE (13:37)
[2024-04-20] MEDS ORDERED: IPRATROPIUM BROM 0.5MG/2.5ML ONE (13:37)
[2024-04-20] MEDS ORDERED: FENTANYL CITR 100 MCG/2 ML ONE (13:38)
--- NOTE | 2024-04-20 13:51 | RAD REPORT ---
EXAM: Chest Single View HISTORY: DYSPNEA COMPARISON: None. FINDINGS: LUNGS/PLEURA: Similar elevation of the right hemidiaphragm. There is likely some underlying atelectas is. The lungs are otherwise clear. MEDIASTINUM: Calcified right hilar lymph nodes. CARDIAC: Within normal limits. UPPER ABDOMEN: No significant abnormality. BONES: No acute fracture. ACDF in the cervical spine. LINES/TUBES/OTHER: Left IJ approach Port-A-Cath with tip angled laterally and possibly within the pro ximal SVC. IMPRESSION: No evidence of acute cardiopulmonary disease.
[2024-04-20 13:56] LABS: PT Prothrombin Time 13.9 SECONDS (9.4-12.5); PTT, Activated Partial Thromb 32.7 SECONDS (24.3-36.9); Protime INR 1.25
[2024-04-20 14:16] LABS: SARS-CoV-2 Antigen CONTROL BLUE LINE VIS/BG OK; SARS-CoV-2 Antigen Rapid Res Negative (Negative)
[2024-04-20 14:19] LABS: Absolute Lymphocytes (CBC) 0.2 K/uL (0.7-4.9); Absolute Monocytes 0.2 K/uL (0.1-1.3); Absolute Neutrophil 0.5 K/uL (1.8-8.0); Basophils % 1.2 % (0-1.3); Eosinophils % 0.3 % (0-4.4); Hematocrit 29.1 % (39.6-49.0); Hemoglobin 9.7 g/dL (13.6-17.9); Lymphocytes % 22.2 % (15.3-44.8); MCH 31.8 pg (27.0-35.0); MCHC 33.5 g/dL (32.0-36.0); MCV 95.1 fL (80-100); MPV 6.8 fL (7.6-11.3); Monocytes % 23.9 % (3.3-12.3); Neutrophils % 52.4 % (41.7-73.7); Nucleated Red Blood Cells % 0.2 % (0-0); Platelets 302 thou/uL (152-406); RBC Red Blood Cell Count 3.05 M/uL (4.33-5.43); Red Cell Distribution Width 23.3 % (12.1-15.2)
[2024-04-20 14:33] LABS: Albumin 3.3 g/dL (3.4-5.0); Albumin/Globulin Ratio 0.8 (1.1-1.8); Anion Gap 12.8 mEq/L (5.0-15.0); Bilirubin Total 0.7 mg/dL (0.2-1.0); Globulin 3.9 g/dL (2.3-3.5); Potassium 3.8 mEq/L (3.5-5.1); Protein, Total 7.2 g/dL (6.4-8.2)
--- NOTE | 2024-04-20 14:57 | ER ---
Nurse's Notes [facility] Name: Iris Hernandez Age: 74 yrs Sex: Male : 1950 Arrival Date: 04/20/2024 Time: 11:29 Bed 13 Private MD: Diagnosis: Respiratory syncytial virus as the cause of diseases classified elsewhere;Neutropenia, unspecified;Hyponatremia Presentation: 04/20 12:17 Chief complaint: Cough, congestion, fever, N/V, and body aches x 4 days. Currently hb doing chemo for pancreatic cancer at the cancer center. Coronavirus screen: Client presents with at least one sign or symptom that may indicate coronavirus-19. Provider contacted for isolation considerations. Ebola Screen: No symptoms or risks identified at this time. Initial Sepsis Screen: Does the patient meet any 2 criteria? No. Patient's initial sepsis screen is negative. Does the patient have a suspected source of infection? No. Patient's initial sepsis screen is negative. Risk Assessment: Do you want to hurt yourself or someone else? Patient reports no desire to harm self or others. Onset of symptoms was April 16, 2024. 12:17 Method Of Arrival: Ambulatory hb 12:17 Acuity: MARISOL 2 hb Historical: - Allergies: 12:20 levofloxacin; hb - PMHx: 12:20 Cancer; Hypercholesterolemia; hb - Immunization history:: Adult Immunizations up to date. - Infectious Disease History:: Denies. - Social history:: Smoking status: Patient denies any tobacco usage or history of. Screenin:52 [facility] ED Fall Risk Assessment (Adult) History of falling in the last 3 months, tm6 including since admission No falls in past 3 months (0 pts) Confusion or Disorientation No (0 pts) Intoxicated or Sedated No (0 pts) Impaired Gait No (0 pts) Mobility Assist Device Used No (0 pt) Altered Elimination No (0 pt) Score/Fall Risk Level 0 - 2 = Low Risk Oriented to surroundings, Maintained a safe environment, Educated pt \T\ family on fall prevention, incl call for assistance when getting out of bed. Abuse screen: Denies threats or abuse. Denies injuries from another. Nutritional screening: No deficits noted. Tuberculosis screening: No symptoms or risk factors identified. Assessment: 13:52 General: Appears in no apparent distress. Behavior is calm, cooperative. Pain: tm6 Complains of pain in back Pain currently is 9 out of 10 on a pain scale. Neuro: Level of Consciousness is awake, alert, obeys commands, Oriented to person, place, time, situation. Cardiovascular: Reports shortness of breath, Rhythm is regular. Respiratory: Airway is patent Respiratory effort is even, labored, Respiratory pattern is regular, Breath sounds are clear. GI: No signs and/or symptoms were reported involving the gastrointestinal system. Abdomen is flat, non-distended. : No signs and/or symptoms were reported regarding the genitourinary system. EENT: No signs and/or symptoms were reported regarding the EENT system. Derm: No signs and/or symptoms reported regarding the dermatologic system. Musculoskeletal: Reports pain in back Pain is 9 out of 10 on a pain scale. 15:13 Reassessment: Patient and/or family updated on plan of care and expected duration. Pain tm6 level reassessed. Patient is alert, oriented x 3, equal unlabored respirations, skin warm/dry/pink. Vital Signs: 12:17 BP 116 / 78; Pulse 110; Resp 20; Temp 99.1(TE); Pulse Ox 99% on R/A; Weight 84.37 kg; hb Height 5 ft. 10 in. ; Pain 9/10; 15:12 BP 115 / 75; Pulse 107; Resp 17; Temp 101; Pulse Ox 94% on R/A; MAP 88 mmHg; Pain 5/10; tm6 12:17 Body Mass Index 26.69 (84.37 kg, 177.8 cm) hb 12:17 Pain Scale: Adult hb 15:12 Pain Scale: Adult tm6 ED Course: 11:35 Patient arrived in ED. al6 11:55 Olimpia Sutherland PA-C is PHCP. sb4 11:55 Raymond Barrios MD is Attending Physician. sb4 12:20 Triage completed. hb 12:20 Arm band placed on. hb 12:29 Juan Macias, LISA is Primary Nurse. tm6 13:31 Chest Single View XRAY In Process Unspecified. EDMS 13:52 Patient has correct armband on for positive identification. Bed in low position. Call tm6 light in reach. Side rails up X 1. Provided Education on: use of call salas. Client placed on continuous cardiac and pulse oximetry monitoring. NIBP monitoring applied. threat monitoring analyst on. Pulse ox on. NIBP on. Door closed. Noise minimized. Warm blanket given. Pillow given. 13:52 RSV Sent. tm6 13:52 Flu Sent. tm6 13:52 SARS RAPID Sent. tm6 13:52 Blood Culture Adult (2) Sent. tm6 13:52 CBC with Diff Sent. tm6 13:52 CMP Sent. tm6 13:52 Lactate w/ 2H reflex if indic. Sent. tm6 13:52 Protime (+inr) Sent. tm6 13:52 Ptt, Activated Sent. tm6 13:52 EKG done, by ED staff, reviewed by Olimpia Sutherland PA-C. Inserted saline lock: 20 gauge in tm6 left antecubital area, using aseptic technique. Blood collected. Flushed with 10 mL NS. 15:25 No provider procedures requiring assistance completed. IV discontinued, intact, tm6 bleeding controlled, No redness/swelling at site. Pressure dressing applied. Administered Medications: 13:51 Drug: DuoNeb Nebulize (3:1) (2.5 mg - 0.5 mg) 3 ml Nebulizer once Route: Nebulizer; tm6 15:13 Follow up: Response: No adverse reaction tm6 13:52 Drug: NS 0.9% IV 1000 ml IV at 1000 ml once; to be given as a bolus over 60 minutes tm6 Route: IV; Rate: 1000 ml; Site: left antecubital; 15:14 Follow up: Response: No adverse reaction; IV Status: Completed infusion; IV Intake: tm6 1000ml 14:13 Drug: fentaNYL (PF) IVP 50 mcg IVP once Route: IVP; Site: left antecubital; tm6 15:14 Follow up: Response: No adverse reaction tm6 15:25 Drug: Acetaminophen PO 1000 mg PO once Route: PO; tm6 15:25 Follow up: Response: Medication administered at discharge. tm6 Medication: 13:52 VIS not applicable for this client. tm6 Intake: 15:14 IV: 1000ml; Total: 1000ml. tm6 Outcome: 14:56 Discharge ordered by . sb4 15:26 Discharged to home via wheelchair, with family, tm6 15:26 Condition: stable 15:26 Discharge instructions given to patient, family, Instructed on discharge instructions, follow up and referral plans. medication usage, Demonstrated understanding of instructions, follow-up care, medications, Prescriptions given X 1, 15:26 Patient left the ED. tm6 Signatures: Dispatcher [employer] EDMS Tamar Cates RN RN hb Olimpia Sutherland PA-C PA-C sb4 Juan Macias RN RN tm6 Tatyana Andrews al6 Corrections: (The following items were deleted from the chart) 12:21 12:17 Acuity: MARISOL 3 hb hb 15:19 15:12 BP 115 / 75; Pulse 107bpm; Resp 17bpm; Pulse Ox 94% RA; MAP 88 mmHg; Temp 99.1F; tm6 Pain 5/10, Adult; tm6
--- NOTE | 2024-04-20 14:57 | EDPHYS ---
Physician Documentation [facility] Name: Iris Hernandez Age: 74 yrs Sex: Male : 1950 Arrival Date: 04/20/2024 Time: 11:29 Bed 13 Private MD: KADE Physician Raymond Barrios HPI: 04/20 12:50 This 74 yrs old Male presents to ER via Ambulatory with complaints of shortness of sb4 breath, FLS. 12:50 Patient with history of pancreatic cancer on chemotherapy presents with complaints of sb4 flulike symptoms and shortness of breath. States that the symptoms began about 3 to 4 days ago. States that he is experiencing cough, fever, chills, shortness of breath, nausea, and vomiting. States that he feels pain in his abdomen every time he coughs. Historical: - Allergies: 12:20 levofloxacin; hb - PMHx: 12:20 Cancer; Hypercholesterolemia; hb - Immunization history:: Adult Immunizations up to date. - Infectious Disease History:: Denies. - Social history:: Smoking status: Patient denies any tobacco usage or history of. ROS: 12:50 Cardiovascular: Negative for chest pain, palpitations, and edema, sb4 12:50 Constitutional: Positive for body aches, chills, fatigue, fever, malaise, 12:50 Respiratory: Positive for cough, dyspnea on exertion, 12:50 Abdomen/GI: Positive for nausea and vomiting, 12:50 All other systems are negative, Exam: 12:50 Head/Face: Normocephalic, atraumatic. Eyes: Extra-ocular motions intact. Periorbital sb4 areas with no swelling, redness, or edema. ENT: Mucous membranes moist. Cardiovascular: Regular rate and rhythm with a normal S1 and S2. Respiratory: No increased work of breathing, no retractions or nasal flaring. Abdomen/GI: Soft, non-tender, no distension. Skin: Warm, dry with normal turgor. Normal color with no rashes, no lesions, and no evidence of cellulitis. 12:50 Constitutional: The patient appears alert, awake, obviously ill, Vital Signs: 12:17 BP 116 / 78; Pulse 110; Resp 20; Temp 99.1(TE); Pulse Ox 99% on R/A; Weight 84.37 kg; hb Height 5 ft. 10 in. ; Pain 9/10; 15:12 BP 115 / 75; Pulse 107; Resp 17; Temp 101; Pulse Ox 94% on R/A; MAP 88 mmHg; Pain 5/10; tm6 12:17 Body Mass Index 26.69 (84.37 kg, 177.8 cm) hb 12:17 Pain Scale: Adult hb 15:12 Pain Scale: Adult tm6 MDM: 12:19 Medical Screening Exam initiated sb4 14:55 Antibiotic administration: Not indicated, the patient has a suspected viral illness. sb4 Data reviewed: vital signs, nurses notes, lab test result(s), radiologic studies, and as a result, I will discharge patient. Consideration of Admission/Observation Escalation of care including admission/observation considered. Care significantly affected by the following chronic conditions: Cancer. Counseling: I had a detailed discussion with the patient and/or guardian regarding the historical points, exam findings, and any diagnostic results supporting the discharge/admit diagnosis, lab results, radiology results, to return to the emergency department if symptoms worsen or persist or if there are any questions or concerns that arise at home. Refusal of service: The patient/guardian displays adequate decision making capability and despite a detailed discussion of alternatives, benefits, risks, and consequences refuses: Admission to the hospital for further work-up and treatment. ED course: Discussed positive RSV, low sodium, and tachycardic. Recommended admission. Patient declines. He states he feels better and wants to go home at this time. He states he will come back for any new or worsening symptoms. 04/20 12:24 Order name: Blood Culture Adult (2) 4 04/20 12:24 Order name: CBC with Diff sb4 04/20 12:24 Order name: CMP; Complete Time: 14:35 sb4 04/20 12:24 Order name: Lactate w/ 2H reflex if indic.; Complete Time: 14:30 sb4 04/20 12:24 Order name: Protime (+inr); Complete Time: 13:57 sb4 04/20 12:24 Order name: Ptt, Activated; Complete Time: 13:57 sb4 04/20 12:24 Order name: SARS RAPID; Complete Time: 14:19 sb4 04/20 12:24 Order name: Flu; Complete Time: 14:19 sb4 04/20 12:25 Order name: RSV; Complete Time: 14:10 sb4 04/20 14:39 Order name: Osmolality, Serum; Complete Time: 15:18 sb4 04/20 12:24 Order name: Chest Single View XRAY; Complete Time: 13:51 sb4 04/20 12:24 Order name: Accucheck; Complete Time: 13:52 sb4 04/20 12:24 Order name: Cardiac monitoring; Complete Time: 13:52 sb4 04/20 12:24 Order name: EKG - Nurse/Tech; Complete Time: 13:52 sb4 04/20 12:24 Order name: IV Saline Lock - Large Bore; Complete Time: 13:52 sb4 04/20 12:24 Order name: Labs collected and sent; Complete Time: 13:52 sb4 04/20 12:24 Order name: O2 Per Protocol; Complete Time: 13:52 sb4 04/20 12:24 Order name: O2 Sat Monitoring; Complete Time: 13:52 sb4 04/20 12:24 Order name: Vital Signs; Complete Time: 13:52 sb4 EC:30 Rate is 100 beats/min. Rhythm is regular, Sinus Rhythm. SC interval is normal at 198 sb4 msec. QRS interval is normal at 128 msec. QT interval is normal at 368 msec. No Q waves. T waves are Normal. No ST changes noted. Clinical impression: No evidence of ischemia. Interpreted by me. Reviewed by me. Administered Medications: 13:51 Drug: DuoNeb Nebulize (3:1) (2.5 mg - 0.5 mg) 3 ml Nebulizer once Route: Nebulizer; tm6 15:13 Follow up: Response: No adverse reaction tm6 13:52 Drug: NS 0.9% IV 1000 ml IV at 1000 ml once; to be given as a bolus over 60 minutes tm6 Route: IV; Rate: 1000 ml; Site: left antecubital; 15:14 Follow up: Response: No adverse reaction; IV Status: Completed infusion; IV Intake: tm6 1000ml 14:13 Drug: fentaNYL (PF) IVP 50 mcg IVP once Route: IVP; Site: left antecubital; tm6 15:14 Follow up: Response: No adverse reaction tm6 15:25 Drug: Acetaminophen PO 1000 mg PO once Route: PO; tm6 15:25 Follow up: Response: Medication administered at discharge. tm6 Disposition Summary: 04/20/24 14:56 Discharge Ordered Notes: Location: Home sb4 Problem: new sb4 Symptoms: have improved sb4 Condition: Stable sb4 Diagnosis - Respiratory syncytial virus as the cause of diseases classified elsewhere sb4 - Neutropenia, unspecified sb4 - Hyponatremia sb4 Followup: sb4 - With: Emergency Department - When: As needed - Reason: Trouble breathing, Worsening of condition Discharge Instructions: - Discharge Summary Sheet sb4 - Neutropenia sb4 - Hyponatremia, Yljz-ll-Epsy sb4 - Respiratory Syncytial Virus Infection, Adult sb4 Forms: - Patient Portal Instructions sb4 - Leadership Thank You Letter sb4 Prescriptions: - Tessalon Perles 100 mg Oral Capsule - take 1 capsule ORAL route every 8 hours As needed; 15 capsule; Refills: 0, sb4 Product Selection Permitted Addendum: 04/22/2024 15:01 Co-signature as Attending Physician, Raymond Barrios MD I agree with the assessment and c carr plan of care. Signatures: Dispatcher [employer] Raymond Avendano MD MD cha Baxter, Heather, RN RN Olimpia Arauz, PA-C PA-C sb4 Juan Macias RN RN tm6 Corrections: (The following items were deleted from the chart) 04/20 12:25 12:25 BLOOD CULTURE*+BA.LAB.BRZ ordered. EDMS EDMS 12: 12:25 CBC+H.LAB.BRZ ordered. EDMS EDMS 12:25 12:25 COMPREHENSIVE METABOLIC PANEL+C.LAB.BRZ ordered. EDMS EDMS 12: 12:25 LACTATE+C.LAB.BRZ ordered. EDMS EDMS 12:25 12:25 PROTIME (+INR)+COAG.LAB.BRZ ordered. EDMS EDMS 12:25 12:25 PTT, ACTIVATED+COAG.LAB.BRZ ordered. EDMS EDMS 12:25 12:25 Urinalysis+U.LAB.BRZ ordered. EDMS EDMS 12:25 12:25 SARS-COV-2 Antigen Rapid+I.LAB.BRZ ordered. EDMS EDMS 12:25 12:25 Influenza Screen (A \T\ B)+BA.LAB.BRZ ordered. EDMS EDMS 12:25 12:25 Chest Single View+RAD.RAD.BRZ ordered. EDMS EDMS 12:25 12:25 Respiratory Syncytial Virus Ag+BA.LAB.BRZ ordered. EDMS EDMS
[2024-04-20] MEDS ORDERED: ACETAMINOPHEN 500 MG TAB ONE (15:21)
[2024-04-20 15:36] LABS: Differential Total Cells Count 100; Lymphocytes 27 % (15-42); Segmented Neutrophils 55 % (40-80)
[2024-04-20 15:37] LABS: Monocytes 16 % (0-10)
[2024-04-20 15:39] VITALS: BP 115/75; TEMP 101; O2SAT 94
[2024-04-20 16:31] LABS: Platelet Estimate ADEQ
[2024-04-20 16:42] LABS: Blood Morphology Comment NOTED (NOT SEEN)
[2024-04-20 16:43] LABS: Anisocytosis 1+; Poikilocytosis 1+
--- NOTE | 2024-04-22 11:14 | EKG ---
Test Date: 2024-04-20 Test Time: 13:43:43 Beam Department Supervisor: FELIPA MEASUREMENT RESULTS: Intervals: Rate: 100 NE: 198 QRSD: 128 QT: 368 QTc: 474 [place]: P: 46 NE: 198 QRS: -15 T: 28 INTERPRETIVE STATEMENTS: Sinus rhythm with fusion complexes Right bundle branch block Inferior infarct, age undetermined Abnormal ECG Compared to ECG 01/24/2024 10:09:17 Fusion complex(es) now present Myocardial infarct finding now present Electronically Signed On 04-22-24 11:10:16 DBAS by Syed Browne
== END 2024-04-20 15:26 | disposition home or self-care (01) ==
LOC: ER 11:29
DX: R06.02 Shortness of breath (principal); B97.4 Respiratory syncytial virus as the cause of diseases classified elsewhere; D70.9 Neutropenia, unspecified; E87.1 Hypo-osmolality and hyponatremia; R11.2 Nausea with vomiting, unspecified; Z85.07 Personal history of malignant neoplasm of pancreas; Z11.52 Encounter for screening for COVID-19
CPT/HCPCS: 96361; 93005; 87040 ×2; 85025; 36415; 85610; 83605; 85730; 80053; 83930; 87807; 87804 ×2; 71045; 96374; 99285; 87811; J7613; J7644; J3010; J7030

== ENCOUNTER 2024-08-09 10:32 | Emergency (ER) | payer OTHER ==
[2024-08-09] MEDS ORDERED: NA CHLORIDE 0.9% 1,000 ML ONE ×2 (10:56→11:58)
[2024-08-09 11:21] LABS: Absolute Basophils 0.2 K/uL (0-0.5); Absolute Lymphocytes (CBC) 0.4 K/uL (0.7-4.9); Absolute Monocytes 1.5 K/uL (0.1-1.3); Absolute Neutrophil 30.9 K/uL (1.8-8.0); Basophils % 0.6 % (0-1.3); Eosinophils % 0.1 % (0-4.4); Hematocrit 26.8 % (39.6-49.0); Hemoglobin 9.1 g/dL (13.6-17.9); Lymphocytes % 1.1 % (15.3-44.8); MCH 33.7 pg (27.0-35.0); MCHC 33.8 g/dL (32.0-36.0); MCV 99.9 fL (80-100); MPV 8.4 fL (7.6-11.3); Monocytes % 4.5 % (3.3-12.3); Neutrophils % 93.7 % (41.7-73.7); Platelets 137 thou/uL (152-406); RBC Red Blood Cell Count 2.68 M/uL (4.33-5.43); Red Cell Distribution Width 20.3 % (12.1-15.2)
--- NOTE | 2024-08-09 11:26 | RAD REPORT ---
EXAMINATION: Head Brain Wo Cont CLINICAL INDICATION: Male, 74 years old.DECLINING STATE TECHNIQUE: Axial CT images from the skull base to the vertex without intravenous contrast. Coronal an d sagittal reformatted images were created from the data set. One or more of the following dose reduction techniques were used: Automated exposure control, adjustment of the mA and/or kV according to patient size, and/or iterative reconstruction. Unless otherwise specified, incidental findings do not require dedicated imaging follow-up. [id number]. COMPARISON: No prior head CT, previous soft tissue neck CTs including 03/29/2023, CT sinuses 09/06/2023 FINDINGS: INTRACRANIAL: No acute intracranial hemorrhage. No hydrocephalus. Possible dural based lesion at the medial left frontal lobe measuring approximately 19 mm. It could reflect a meningioma or artifact. Mild chronic small vessel ischemic changes. VASCULATURE: No visualized abnormalities in the arteries or dural venous sinuses. SCALP/SKULL: No calvarial fracture identified. No acute soft tissue abnormality. SINUSES: The visualized paranasal sinuses are mostly clear. No significant mastoid fluid. IMPRESSION: No definite acute intracranial abnormality. Possible dural based lesion at the medial left frontal lo be without significant mass effect and which could represent a meningioma but recommend further evaluation with contrast-enhanced brain MRI. This may not need be emergent depending on the patient's clinical status.
[2024-08-09 11:30] LABS: PTT, Activated Partial Thromb 37.2 SECONDS (27.2-37.4); Protime INR 2.09
--- NOTE | 2024-08-09 11:30 | RAD REPORT ---
EXAM: Chest Single View HISTORY: 74 years Male CHEST PAIN COMPARISON: 04/12/2024 FINDINGS: LUNGS/PLEURA: Increased elevation of the right hemidiaphragm compared with prior which could be assoc iated with underlying atelectasis. The right hemidiaphragm likely has chronic eventration which has been seen on prior exams. The left lung is clear. CARDIAC/MEDIASTINUM: Stable size and configuration. UPPER ABDOMEN: No significant abnormality. BONES: No acute abnormality. ACDF in the cervical spine. LINES/TUBES/OTHER: Left IJ approach Port-A-Cath with tip at the proximal SVC. IMPRESSION: Increased elevation of the right hemidiaphragm could reflect increased atelectasis though the etiolog y is uncertain.
[2024-08-09 11:41] LABS: Albumin 1.8 g/dL (3.4-5.0); Albumin/Globulin Ratio 0.4 (1.1-1.8); Anion Gap 16.8 mEq/L (5.0-15.0); Bilirubin Total 3.2 mg/dL (0.2-1.0); Globulin 4.1 g/dL (2.3-3.5); Potassium 4.8 mEq/L (3.5-5.1); Protein, Total 5.9 g/dL (6.4-8.2); Troponin High Sensitivity 20.7 pg/mL (<58.9)
[2024-08-09] MEDS ORDERED: CEFEPIME 2 GM VIAL ONE (11:58)
[2024-08-09] MEDS ORDERED: NA CHLORIDE 0.9% 100 ML ONE (11:58)
[2024-08-09 12:41] LABS: Anisocytosis 1+; Band Neutrophils 4 % (0-1); Blood Morphology Comment NOTED (NOT SEEN); Differential Total Cells Count 100; Lymphocytes 3 % (15-42); Macrocytosis 1+; Monocytes 1 % (0-10); Platelet Estimate ADEQ; Segmented Neutrophils 92 % (40-80)
[2024-08-09 12:54] LABS: Specific Gravity 1.025 (1.005-1.030); Sqamous Epithelial <5 /HPF (None Seen); Urine Bacteria None Seen /HPF (<20); Urine Bilirubin 1+ (Negative); Urine Blood 2+ (Negative); Urine Clarity Extremely Turbid (Clear); Urine Color Dark-Yellow (Yellow); Urine Culture Reflex Order REFLEXED; Urine Glucose NEGATIVE (Negative); Urine Ketones NEGATIVE (Negative); Urine Microscopic Reflex YN ORDER UMIC; Urine Mucus Slight /HPF (None Seen); Urine Nitrite NEGATIVE (Negative); Urine Protein 1+ (Negative); Urine RBC 21-50 /HPF (None Seen); Urine Urobilinogen 1+ (Normal); Urine pH 5.5 (5.0-7.0)
[2024-08-09] MEDS ORDERED: VANCOMYCIN 1.5 GM in NA CHLORIDE 0.9% 500 ML IVPB SCH (13:00)
--- NOTE | 2024-08-09 13:27 | RAD REPORT ---
EXAMINATION: CT ABDOMEN AND PELVIS WITHOUT CONTRAST CLINICAL INDICATION: Abdominal pain. Right lower quadrant pain TECHNIQUE: CT abdomen and pelvis was performed, as per department protocol. IV contrast and oral was not administered.Axial, sagittal and coronal reconstructions were obtained. One or more of the following dose reduction techniques were used: Automated exposure control, adjustment of the mA and/o r kV according to the patient size, and/or iterative reconstruction. Unless otherwise specified, incidental findings do not require dedicated imaging follow-up. [id number]. COMPARISON June 2024 PET scan FINDINGS: The lack of intravenous and oral contrast limits evaluation of solid organs, vessels and bowel. 10 mm left lower lobe nodule mildly increased in size. Small right pleural effusion. Limited evaluation of the liver and spleen secondary to a combination of patient motion artifact and the arms and hands overlying the abdomen. Patient has known hepatic lesions. 13 mm pericardial lesion without significant change. Pancreatic head mass without obvious change. Biliary stent in place without visualization of dilatati on of the biliary tree. Cholecystectomy. Adrenals and kidneys grossly normal. Small helical hernia. [place] catheter within the bladder. Small amount of ascites. No evidence of diverticulitis. Appendix not clearly seen. Small to moderate inguinal hernias containing fat. IMPRESSION: Small right pleural effusion 10 mm left lung nodule mildly increased in size. Small amount of ascites No other significant change since prior exam
[2024-08-09] MEDS ORDERED: D10W 250 ML IV ONE (13:42)
--- NOTE | 2024-08-09 14:15 | ER ---
Nurse's Notes [facility] Name: Iris Hernandez Age: 74 yrs Sex: Male : 1950 Arrival Date: 08/09/2024 Time: 10:32 Bed 24 Private MD: Diagnosis: Sepsis, unspecified organism;UTI/ Urinary tract infection, site not specified;Hypoglycemia, unspecified;Acute kidney failure, unspecified Presentation: 08/09 10:42 Chief complaint: EMS states: they were toned out for a fall and generalized weakness. kc6 pt states he fell at 0430 and denies LOC or taking blood thinners. Coronavirus screen: At this time, the client does not indicate any symptoms associated with coronavirus-19. Ebola Screen: No symptoms or risks identified at this time. Initial Sepsis Screen: Does the patient meet any 2 criteria? HR > 90 bpm. Does the patient have a suspected source of infection? No. Patient's initial sepsis screen is negative. Risk Assessment: Do you want to hurt yourself or someone else? Patient reports no desire to harm self or others. Onset of symptoms was August 09, 2024. Care prior to arrival: Medication(s) given: Normal saline infusion, 500 mL, IV initiated. 18 GA, in the left antecubital area, Glucose check: 96 Oxygen administered. via nasal cannula. 10:42 Method Of Arrival: EMS: [facility] 10:42 Acuity: [facility]IS[facility] 2 [facility] Historical: - Allergies: 10:43 Levofloxacin; kc6 - PMHx: 10:43 Hypercholesterolemia; Cancer; kc6 - PSHx: 10:43 Unable to Obtain; kc6 - Immunization history:: Adult Immunizations up to date. - Infectious Disease History:: Denies. - Social history:: Smoking status: Patient denies any tobacco usage or history of. Screenin:45 [facility] ED Fall Risk Assessment (Adult) History of falling in the last 3 months, [facility] including since admission Yes- physiologic fall (2 pts) Confusion or Disorientation No (0 pts) Intoxicated or Sedated No (0 pts) Impaired Gait No (0 pts) Mobility Assist Device Used No (0 pt) Altered Elimination No (0 pt) Score/Fall Risk Level 0 - 2 = Low Risk Oriented to surroundings, Maintained a safe environment, Educated pt \T\ family on fall prevention, incl call for assistance when getting out of bed. Abuse screen: Denies threats or abuse. Denies injuries from another. Nutritional screening: No deficits noted. Tuberculosis screening: No symptoms or risk factors identified. Assessment: 11:20 General: Appears in no apparent distress. uncomfortable, well groomed, well developed, kc6 Behavior is calm, cooperative, appropriate for age. Pain: Complains of pain in abdomen. Neuro: Level of Consciousness is awake, alert, obeys commands, Oriented to person, place, time, situation, Appropriate for age. Cardiovascular: Denies chest pain, shortness of breath, Heart tones S1 S2 present Capillary refill < 3 seconds Rhythm is sinus tachycardia. Respiratory: Airway is patent Trachea midline Respiratory effort is even, unlabored, Respiratory pattern is regular, symmetrical. GI: No signs and/or symptoms were reported involving the gastrointestinal system. : No signs and/or symptoms were reported regarding the genitourinary system. EENT: No signs and/or symptoms were reported regarding the EENT system. Derm: No signs and/or symptoms reported regarding the dermatologic system. Skin is intact, is fragile, is thin, with poor turgor Skin is pale. Musculoskeletal: No signs and/or symptoms reported regarding the musculoskeletal system. Circulation, motion, and sensation intact. Range of motion: intact in all extremities. 12:26 Reassessment: Patient appears in no apparent distress at this time. No changes from kc6 previously documented assessment. Patient and/or family updated on plan of care and expected duration. Pain level reassessed. Patient is alert, oriented x 3, equal unlabored respirations, skin warm/dry/pink. 13:22 Reassessment: Patient appears in no apparent distress at this time. No changes from kc6 previously documented assessment. Patient and/or family updated on plan of care and expected duration. Pain level reassessed. Patient is alert, oriented x 3, equal unlabored respirations, skin warm/dry/pink. 14:16 Reassessment: Patient appears in no apparent distress at this time. No changes from kc6 previously documented assessment. Patient and/or family updated on plan of care and expected duration. Pain level reassessed. Patient is alert, oriented x 3, equal unlabored respirations, skin warm/dry/pink. 15:46 Reassessment: Patient appears in no apparent distress at this time. No changes from kc6 previously documented assessment. Patient and/or family updated on plan of care and expected duration. Pain level reassessed. Patient is alert, oriented x 3, equal unlabored respirations, skin warm/dry/pink. 16:54 Reassessment: Patient appears in no apparent distress at this time. No changes from kc6 previously documented assessment. Patient and/or family updated on plan of care and expected duration. Pain level reassessed. 17:21 Reassessment: Patient appears in no apparent distress at this time. No changes from kc6 previously documented assessment. Patient and/or family updated on plan of care and expected duration. Pain level reassessed. Vital Signs: 10:42 BP 103 / 75; Pulse 120; Resp 18 S; Temp 97.9(O); Pulse Ox 92% on R/A; Weight 82.55 kg kc6 (R); Height 5 ft. 10 in. (R); 11:21 BP 137 / 84; Pulse 114; Resp 20 S; Pulse Ox 99% on R/A; kc6 12:32 BP 98 / 59; Pulse 105; Resp 20 S; Pulse Ox 96% on R/A; kc6 13:22 BP 100 / 56; Pulse 98; Resp 19 S; Pulse Ox 95% on R/A; kc6 14:17 BP 107 / 58; Pulse 104; Resp 17 S; Pulse Ox 96% on R/A; kc6 15:46 BP 84 / 57; Pulse 98; Resp 18 S; Pulse Ox 95% on R/A; kc6 16:28 BP 122 / 68; Pulse 95; Resp 18 S; Pulse Ox 100% on 2 lpm NC; kc6 16:54 BP 102 / 73; Pulse 98; Resp 19 S; Pulse Ox 99% on 2 lpm NC; kc6 17:22 BP 125 / 67; Pulse 100; Resp 19 S; Pulse Ox 99% on 2 lpm NC; kc6 10:42 Body Mass Index 26.11 (82.55 kg, 177.8 cm) 6 ED Course: 10:41 Patient arrived in ED. kc6 10:42 Nieves Almaraz MD is Attending Physician. gb1 10:43 Triage completed. kc6 10:43 Arm band placed on. kc6 10:44 Patient has correct armband on for positive identification. Bed in low position. Call kc6 light in reach. Side rails up X2. Adult w/ patient. cardiac monitor technician on. Pulse ox on. NIBP on. Door closed. Noise minimized. Lights dimmed. Warm blanket given. Pillow given. Verbal reassurance given. 10:44 Maintain EMS IV. Dressing intact. Good blood return noted. Site clean \T\ dry. Gauge \T\ mackenzie 6 site: 18G LAC. Flushed with 10 mL NS. 10:52 Roxanne Coffman, RN is Primary Nurse. kc6 11:13 CT Head Brain wo Cont In Process Unspecified. EDMS 11:20 Chest Single View XRAY In Process Unspecified. EDMS 12:24 Repositioned patient. Cleaned of incontinence. Linen changed. kc6 12:24 Coud inserted, using sterile technique, 18 Fr. Returned bloody urine. To gravity kc6 drainage. Clamped. Urine specimen collected. Patient tolerated well. 13:07 CT Abd/Pelvis - Without Contrast In Process Unspecified. EDMS 16:55 No provider procedures requiring assistance completed. kc6 17:23 Provided Education on: need for transfer. kc6 17:23 Patient transferred, IV remains in place. kc6 Administered Medications: 11:20 Drug: NS 0.9% IV (30 ml/kg) 30 ml/kg IV at bolus once; Sepsis Protocol; to be given as kc6 a bolus over 90 minutes Route: IV; Rate: bolus; Site: left antecubital; 14:21 Follow up: Response: No adverse reaction; IV Status: Completed infusion; IV Intake: kc6 2000ml ; 500 mL received from EMS 12:24 Drug: Cefepime IVPB 2 grams IVPB at 200 ml/hr once over 30 mins; (mix in NS 100 mL) kc6 Route: IVPB; Rate: 200 ml/hr; Infused Over: 30 mins; Site: left antecubital; 13:22 Follow up: Response: No adverse reaction; IV Status: Completed infusion; IV Intake: kc6 100ml 13:12 Drug: vancoMYCIN IVPB 20 mg/kg IVPB once; once over 2 hours; not to exceed 2 grams; bp (mix in 250 to 500mL NS) Route: IVPB; Site: left antecubital; 15:46 Follow up: Response: No adverse reaction; IV Status: Completed infusion; IV Intake: kc6 500ml 13:55 Drug: D10 in Water IVP 250 mg IVP once Route: IVP; Site: left antecubital; kc6 16:28 Follow up: Response: No adverse reaction; Blood sugar is elevated kc6 16:11 Drug: Norepinephrine IV 0.1 mcg/kg/min IV at calculated rate See Administration kc6 Instructions; (Standard concentration 4 mg / 250 mL D5W); Recommended max rate 3 mcg/kg/min; Titrate 0.05 mcg/kg/min as often as every 5 minutes to achieve goal (see titration policy); Goal parameter MAP greater than 65 mmHg. Route: IV; Rate: calculated rate; Site: left antecubital; 16:55 Follow up: Response: No adverse reaction; Blood pressure is elevated; Rate change 0.05 kc6 mcg/kg/min 17:22 Follow up: Response: No adverse reaction; Blood pressure is elevated; IV Status: kc6 Infusion continued upon transfer; IV Intake: 250ml Medication: 16:55 VIS not applicable for this client. kc6 Intake: 13:22 IV: 100ml; Total: 100ml. kc6 14:21 IV: 2000ml; Total: 2100ml. kc6 15:46 IV: 500ml; Total: 2600ml. kc6 17:22 IV: 250ml; Total: 2850ml. kc6 Outcome: 14:14 ER care complete, transfer ordered by . gb1 17:23 Transferred by [facility]. to [facility], Transfer form kc6 completed. 17:23 Condition: stable 17:23 Instructed on the need for transfer, 17:30 Patient left the ED. kc6 Signatures: Dispatcher [employer] Santiago Jimenez, Roxanne Ha RN, RN RN kc6 Nieves Almaraz MD MD gb1
--- NOTE | 2024-08-09 14:15 | EDPHYS ---
Physician Documentation [facility] Name: Iris Hernandez Age: 74 yrs Sex: Male : 1950 Arrival Date: 08/09/2024 Time: 10:32 Bed 24 Private MD: ED Physician Nieves Almaraz Historical: - Allergies: 08/09 10:43 Levofloxacin; kc6 - PMHx: 10:43 Hypercholesterolemia; Cancer; kc6 - PSHx: 10:43 Unable to Obtain; kc6 - Immunization history:: Adult Immunizations up to date. - Infectious Disease History:: Denies. - Social history:: Smoking status: Patient denies any tobacco usage or history of. Vital Signs: 10:42 BP 103 / 75; Pulse 120; Resp 18 S; Temp 97.9(O); Pulse Ox 92% on R/A; Weight 82.55 kg kc6 (R); Height 5 ft. 10 in. (R); 11:21 BP 137 / 84; Pulse 114; Resp 20 S; Pulse Ox 99% on R/A; kc6 12:32 BP 98 / 59; Pulse 105; Resp 20 S; Pulse Ox 96% on R/A; kc6 13:22 BP 100 / 56; Pulse 98; Resp 19 S; Pulse Ox 95% on R/A; kc6 14:17 BP 107 / 58; Pulse 104; Resp 17 S; Pulse Ox 96% on R/A; kc6 15:46 BP 84 / 57; Pulse 98; Resp 18 S; Pulse Ox 95% on R/A; kc6 16:28 BP 122 / 68; Pulse 95; Resp 18 S; Pulse Ox 100% on 2 lpm NC; kc6 16:54 BP 102 / 73; Pulse 98; Resp 19 S; Pulse Ox 99% on 2 lpm NC; kc6 17:22 BP 125 / 67; Pulse 100; Resp 19 S; Pulse Ox 99% on 2 lpm NC; kc6 10:42 Body Mass Index 26.11 (82.55 kg, 177.8 cm) kc6 MDM: 10:42 Medical Screening Exam initiated 08/09 10:51 Order name: Blood Culture Adult (2) 08/09 10:51 Order name: CBC with Diff; Complete Time: 13:29 08/09 10:51 Order name: CMP; Complete Time: 11:47 gb1 08/09 10:51 Order name: Lactate w/ 2H reflex if indic.; Complete Time: 11:52 gb1 08/09 10:51 Order name: Protime (+inr); Complete Time: 11:33 gb1 08/09 10:51 Order name: Ptt, Activated; Complete Time: 11:33 gb1 08/09 10:51 Order name: Urinalysis w/ reflexes; Complete Time: 13:29 gb1 08/09 10:51 Order name: NT PRO-BNP; Complete Time: 11:47 gb08/09 10:51 Order name: Troponin HS; Complete Time: 11:47 gb1 08/09 11:27 Order name: Manual Differential; Complete Time: 13:29 EDMS 08/09 11:57 Order name: Ghost Lactate-NO COLLECT Timer; Complete Time: 14:39 EDMS 08/09 13:09 Order name: Urine Culture EDMS 08/09 13:31 Order name: CK; Complete Time: 14:39 gb1 08/09 13:53 Order name: Glucose, Ancillary Testing; Complete Time: 14:39 EDMS 08/09 14:16 Order name: Lactate w/ 2H reflex if indic. kc6 08/09 14:33 Order name: Glucose, Ancillary Testing; Complete Time: 14:39 EDMS 08/09 14:59 Order name: Ghost Lactate-NO COLLECT Timer EDTN 08/09 15:55 Order name: Glucose, Ancillary Testing EDMS 08/09 10:51 Order name: Chest Single View XRAY; Complete Time: 11:33 gb08/09 10:51 Order name: CT Head Brain wo Cont; Complete Time: 11: gb08/09 11:49 Order name: CT Abd/Pelvis - Without Contrast; Complete Time: 13:29 gb1 08/09 10:51 Order name: Accucheck; Complete Time: 10:53 gb08/09 10:51 Order name: Cardiac monitoring; Complete Time: 10:53 gb08/09 10:51 Order name: EKG - Nurse/Tech; Complete Time: 11:19 gb1 08/09 10:51 Order name: IV Saline Lock - Large Bore; Complete Time: 10:53 gb08/09 10:51 Order name: Labs collected and sent; Complete Time: 11:19 08/09 10:51 Order name: O2 Per Protocol; Complete Time: 10:52 08/09 10:51 Order name: O2 Sat Monitoring; Complete Time: 10:53 08/09 10:51 Order name: Vital Signs; Complete Time: 10:53 gb Administered Medications: 11:20 Drug: NS 0.9% IV (30 ml/kg) 30 ml/kg IV at bolus once; Sepsis Protocol; to be given as kc6 a bolus over 90 minutes Route: IV; Rate: bolus; Site: left antecubital; 14:21 Follow up: Response: No adverse reaction; IV Status: Completed infusion; IV Intake: kc6 2000ml ; 500 mL received from EMS 12:24 Drug: Cefepime IVPB 2 grams IVPB at 200 ml/hr once over 30 mins; (mix in NS 100 mL) kc6 Route: IVPB; Rate: 200 ml/hr; Infused Over: 30 mins; Site: left antecubital; 13:22 Follow up: Response: No adverse reaction; IV Status: Completed infusion; IV Intake: kc6 100ml 13:12 Drug: vancoMYCIN IVPB 20 mg/kg IVPB once; once over 2 hours; not to exceed 2 grams; bp (mix in 250 to 500mL NS) Route: IVPB; Site: left antecubital; 15:46 Follow up: Response: No adverse reaction; IV Status: Completed infusion; IV Intake: kc6 500ml 13:55 Drug: D10 in Water IVP 250 mg IVP once Route: IVP; Site: left antecubital; kc6 16:28 Follow up: Response: No adverse reaction; Blood sugar is elevated [facility] 16:11 Drug: Norepinephrine IV 0.1 mcg/kg/min IV at calculated rate See Administration kc6 Instructions; (Standard concentration 4 mg / 250 mL D5W); Recommended max rate 3 mcg/kg/min; Titrate 0.05 mcg/kg/min as often as every 5 minutes to achieve goal (see titration policy); Goal parameter MAP greater than 65 mmHg. Route: IV; Rate: calculated rate; Site: left antecubital; 16:55 Follow up: Response: No adverse reaction; Blood pressure is elevated; Rate change 0.05 kc6 mcg/kg/min 17:22 Follow up: Response: No adverse reaction; Blood pressure is elevated; IV Status: kc6 Infusion continued upon transfer; IV Intake: 250ml Disposition Summary: 08/09/24 14:14 Transfer Ordered Notes: Reason: Higher level of care gb1 Condition: Critical gb1 Problem: an acute exacerbation gb1 Symptoms: have worsened gb1 Transfer Location: [facility](08/09/24 14:42) gb1 Accepting Physician: Dr. Medeiros(08/09/24 17:30) dona Diagnosis - Sepsis, unspecified organism gb1 - UTI/ Urinary tract infection, site not specified gb1 - Hypoglycemia, unspecified gb1 - Acute kidney failure, unspecified gb1 Forms: - Medication Reconciliation Form gb1 - SBAR form gb1 Signatures: Dispatcher [employer] EDSantiago Rosado RN RN bp Campbell, Kaitlyn, RN RN kc6 Nieves Almaraz MD MD gb1 Corrections: (The following items were deleted from the chart) 10:52 10:52 BLOOD CULTURE*+BA.LAB.BRZ ordered. EDMS EDMS 10:52 10:52 CBC+H.LAB.BRZ ordered. EDMS EDMS 10:52 10:52 COMPREHENSIVE METABOLIC PANEL+C.LAB.BRZ ordered. EDMS EDMS 10:52 10:52 LACTATE+C.LAB.BRZ ordered. EDMS EDMS 10:52 10:52 PROTIME (+INR)+COAG.LAB.BRZ ordered. EDMS EDMS 10:52 10:52 PTT, ACTIVATED+COAG.LAB.BRZ ordered. EDMS EDMS 10:52 10:52 Urinalysis+U.LAB.BRZ ordered. EDMS EDMS 10:52 10:52 PROBNP+C.LAB.BRZ ordered. EDMS EDMS 10:52 10:52 Troponin High Sensitivity+C.LAB.BRZ ordered. EDMS EDMS 10:52 10:52 Chest Single View+RAD.RAD.BRZ ordered. EDMS EDMS 10:52 10:52 Head Brain Wo Cont+CT.RAD.BRZ ordered. EDMS EDMS 14:14 14:14 Dr. Almaraz gb1 gb1 14:42 14:14 [facility] gb1 gb1 14:42 14:14 Dr. Almaraz gb1 gb1 14:45 14:42 Dr. Medeiros gb1 gb1 17:30 14:45 Dr. Medeiros gb1 kc6
[2024-08-09] MEDS ORDERED: NOREPINEPHRINE BITARTRATE/D5W 4 MG/250 ML BAG IV ONE (16:03)
[2024-08-09 17:57] VITALS: TEMP 97.9
[2024-08-09 18:05] VITALS: O2SAT 99
[2024-08-09 18:07] VITALS: BP 125/67
== END 2024-08-09 17:30 | disposition short-term general hospital (02) ==
LOC: ER 10:32
DX: N39.0 Urinary tract infection, site not specified (principal); A41.9 Sepsis, unspecified organism; E16.2 Hypoglycemia, unspecified; N17.9 Acute kidney failure, unspecified
CPT/HCPCS: 87040 ×2; 87088; 85025; 81001; 87086; 36415; 82550; 85610; 82947 ×3; 83605 ×2; 85730; 84484; 80053; 83880; 70450; 74176; 71045; J3370; J0692; J7040; J7030 ×2; 93005; 96365; 96366; 96367; 99285